=== PATIENT | female | born 2005 | race Two or more races ===

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

== ENCOUNTER 2024-03-08 19:57 | Emergency (ER) | payer MEDICAID ==
[~2024-03-08] VITALS: Ht 167.6 cm; Wt 109.0 kg
[~2024-03-08 19:57] MED LIST: ACET1CAP14 PO
[2024-03-08 20:20] VITALS: TEMP 98.9
[2024-03-08 20:36] VITALS: BP 117/58; PULSE 82; RESP 16; O2SAT 98
[2024-03-08] MEDS ORDERED: CLIN1CAP70 PO (21:10)
[2024-03-08] MEDS ORDERED: ACET500T58 PO (21:10)
[2024-03-08] MEDS: cefTRIAXone SOD 1,000 MG VL IM ONE (21:12)
[2024-03-08] MEDS: LIDOCAINE 1% HCL (LOCAL ANESTH.) INJ 20ML MDV ID ONE (21:13)
== END 2024-03-08 21:41 | disposition home or self-care (01) ==
LOC: ER 19:57
DX: S30.861A Insect bite (nonvenomous) of abdominal wall, initial encounter (principal); E11.9 Type 2 diabetes mellitus without complications; Z79.899 Other long term (current) drug therapy; Z98.890 Other specified postprocedural states; W57.XXXA Bitten or stung by nonvenomous insect and other nonvenomous arthropods, initial encounter; Y93.89 Activity, other specified; Y92.89 Other specified places as the place of occurrence of the external cause; Y99.8 Other external cause status
CPT/HCPCS: 96372; 99283; J0696; J2001

== ENCOUNTER 2024-08-20 11:45 | Emergency (ER) | payer MEDICAID ==
[~2024-08-20] VITALS: Ht 167.6 cm; Wt 109.5 kg
[~2024-08-20 11:45] MED LIST changes: +ACET500T58 PO; +CLIN1CAP70 PO
[2024-08-20] MEDS: ACETAMINOPHEN 500 MG TAB or CAP PO ONE (14:12)
--- NOTE | 2024-08-20 14:26 | ED.PDOC ---
SOB-HPI HPI Comments 19y F who presents to the ED for chief complaint of flu-like symptoms. Pt states she has been having cough, nasal congestion, headache, fever, and L ear clogged sensation for the past 4-5 days. Pt states she was with boyfriend during the time and states he recently tested positive for COVID. Pt otherwise in noted respiratory distress and is able to speak without getting short of breath. pt otherwise denies chest pain, shortness of breath, diaphoresis, palpations, nausea, vomiting or diarrhea. Pt otherwise has noted elevated heart rate of 108 with otherwise stable vitals with noted temp of 98.9F, 98% 02 sat on room air, and BP of 124/75. Pt has noted history of DM and states her blood sugar has been elevated at home. Pt otherwise denies any other symptoms at this time. 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[employer] Hx Family History Family History: Unknown Social History Smoker: Non-Smoker Alcohol: Denies ETOH Use Drugs: Denies Drug Use Lives In: Home Constitutional: reports: fatigue, fever; denies: chills, diaphoresis, malaise, sweats, weakness, others EENTM: reports: ear pain, nose congestion, throat pain; denies: blurred vision, double vision, ear bleeding, ear discharge, ear drainage, ear ringing, eye pain, eye redness, hearing loss, mouth pain, mouth swelling, nasal discharge, nose bleeding, nose pain, photophobia, tearing, throat swelling, voice changes, others Respiratory: reports: cough; denies: hemoptysis, orthopnea, SOB at rest, shortness of breath, SOB with excertion, stridor, wheezing, others Cardiovascular: denies: chest pain, dizzy spells, diaphoresis, Dyspnea on exertion, edema, irregular heart beat, left arm pain, lightheadedness, palpitations, PND, syncope, others Gastrointestinal: denies: abdomen distended, abdominal pain, blood streaked bowels, constipated, diarrhea, dysphagia, difficulty swallowing, hematemesis, melena, nausea, poor appetite, poor fluid intake, rectal bleeding, rectal pain, vomiting, others Genitourinary: denies: abnormal vagina bleeding, burning, dyspareunia, dysuria, flank pain, frequency, hematuria, incontinence, pain, , vagina discharge, urgency, others Neurological: denies: dizziness, fainting, headache, left sided numbness, left sided weakness, numbness, paresthesia, pre-existing deficit, right sided numbness, right sided weakness, seizure, speech problems, tingling, tremors, weakness, others Musculoskeletal: denies: back pain, gout, joint pain, joint swelling, muscle pain, muscle stiffness, neck pain, others Integumetry: denies: bruises, change in color, change in hair/nails, dryness, laceration, lesions, lumps, rash, wounds, others Allergic/Immunocompromised: denies: Difficulty Healing, Frequent Infections, Hives, Itching, others Hematologic/Lymphatic: denies: anemia, blood clots, easy bleeding, easy bruising, swollen glands, others Endocrine: denies: excessive hunger, excessive sweating, excessive thirst, excessive urination, flushing, intolerance to cold, intolerance to heat, unexplained weight gain, unexplained weight loss, others Psychiatric: denies: anxiety, bipolar disorder, depression, hopeless, panic disorder, schizophrenia, sleepless, suicidal, others All Other Systems: Reviewed and Negative Physical Exam General Appearance: No Apparent Distress, Obese HEENT: PERRL/EOMI Neck: Full Range of Motion, Normal Inspection Respiratory: Lungs Clear, No Accessory Muscle Use, No Respiratory Distress, Normal Breath Sounds Cardiovascular: No Edema, No JVD, Regular Rate/Rhythm Breast Exam: Deferred Gastrointestinal: Non Tender, Soft Genitalia: Deferred Pelvic: Deferred Rectal: Deferred Extremities: Normal inspection, Normal range of motion, No pedal edema Neurologic: Alert (Oriented x4), Normal Affect, Normal Mood, Other (Ambulatory. No gross focal deficit.) Cerebellar Function: NOT DONE Reflexes: NOT DONE Skin: Dry, Normal Color, Warm Lymphatic: NOT DONE Was a procedure done? Was a procedure done?: No Differential Dx Differential Diagnosis: Asthma, Bronchitis, COPD, Pneumonia, Pharyngitis, URI Comments infuenza A and B, COVID, X-Ray, Labs, Meds, VS Vital Signs Date Time Temp Pulse Resp B/P (MAP) Pulse Ox O2 Delivery O2 Flow Rate FiO2 3/8/25 14:48 98.2 08/20/24 14:12 98.9 08/20/24 14:00 102 16 97 Room Air 08/20/24 14:00 98.6 102 16 126/76 (93) 97 98.6 08/20/24 12:07 18 98 Room Air* 0 21 08/20/24 12:05 98.9 108 18 124/75 (91) 98 Lab Test 08/20/24 14:54 08/20/24 14:25 08/20/24 14:13 08/20/24 12:08 Range/Units Beta HCG, Quantitative 0.3 L 1.5-4.2 mIU/mL POC Glucose 186 H 150 H 70-106 mg/dl Influenza Type A Antigen Negative Negative Influenza Type B Antigen Negative Negative SARS-CoV-2 Antigen (Rapid) Positive *A NEGATIVE Group A Streptococcus Rapid Negative Current Medications Medications (Trade) Dose Ordered Sig/Nikhil Route Start Time Stop Time Status Last Admin Acetaminophen (Tylenol Tablet Or Capsule) 1,000 mg ONCE ONCE PO 08/20/24 14:15 08/20/24 14:16 DC 08/20/24 14:12 X-Ray, Labs, Meds, VS Comment 19-year-old female with a history of diabetes complaining of cough, nasal congestion, headache, fever, and L ear clogged sensation for the past 4-5 days Vitals remarkable for heart rate 108 Exam unremarkable Rhythm strip independently interpreted by me: Sinus tach, rate 102, no ectopy. HCG negative, Accu-Chek 150, influenza and strep negative, COVID positive Patient treated with the following in the ED: Tylenol 1 g p.o. On re-evaluation, patient resting comfortably with stable vitals. Patient appears stable for discharge with close follow-up with her primary physician. Rx paxlovid, tylenol, ibuprofen, mucinex Time of 1ST Reevaluation: 15:00 Reevaluation 1ST: Unchanged Patient Education/Counseling: Diagnosis, Treatment Family Education/Counseling: No Family Present Additional Information -Reviewed patient's previous visit(s): - The following tests were ordered, and results were reviewed by me: influenza A and B, covid test, rapid strep, beta hcg, accu check - Additional information was gathered from interviewing the following independent Historian: pt - I reviewed and agreed with the following test results read by other provider: none - I discussed treatments and results with medical personnel and: patient Comprehensive systems review obtained and negative except for what is stated in the HPI. Departure 1 Departure Time of Disposition: 16:34 Impression: Primary Impression: COVID Disposition: 01 HOME / SELF CARE / HOMELESS Condition: Stable Additional Instructions: Your test for influenza and strep were negative. You tested positive for COVID. I have prescribed medication for your symptoms, and the antiviral medication for COVID. Follow-up with your primary doctor in 1-2 days e-Prescriptions Acetaminophen (Tylenol Extra Strength) 500 Mg Tab 1000 MG PO Q6HP PRN, #30 TAB prn fever or pain Prov: ROSIE WASHINGTON MD 08/20/24 Ibuprofen Micronized (Ibuprofen) 800 Mg Tab 800 MG PO Q8HP PRN, #30 TAB prn fever or pain, take with food Prov: ROSIE WASHINGTON MD 08/20/24 Guaifenesin (Mucinex) 600 Mg Tab 1 TAB PO BID PRN, #20 TAB prn congestion Prov: ROSIE WASHINGTON MD 08/20/24 Nirmatrelvir/Ritonavir (PAXLOVID 20 x 150 MG & 10 x 100MG) 1 Tab Tab 1 DOSE PO BID for 5 Days, #1 PKG 300 mg nirmatrelvir and 100 mg ritonavir po bid x 5 days Prov: ROSIE WASHINGTON MD 08/20/24 Discharged With: Relative Critical Care Note Critical Care Time?: No Stability Stability form required: No Heart Score Heart Score: Heart Score Response (Comments) Value History N/A 0 EKG N/A 0 Age N/A 0 Risk Factors N/A 0 Troponin N/A 0 Total 0 I personally scribed for ROSIE WASHINGTON MD ([email or web address]) on 08/20/24 at 14:26. Electronically submitted by Brenda Dumont ([email or web address]). ROSIE WASHINGTON MD Aug 20, 2024 14:26
[2024-08-20 15:32] LABS: COVID19 ANTIGEN SOFIA FIA POSITIVE (NEGATIVE)
[2024-08-20 15:33] LABS: Rapid Influenza A Negative (Negative); Rapid Influenza B Negative (Negative)
[2024-08-20 15:34] LABS: Rapid Strep A Screen-Throat Negative
[2024-08-20] MEDS ORDERED: NIRM1TAB8 PO (16:42)
[2024-08-20] MEDS ORDERED: IBUP-1455 PO (16:42)
[2024-08-20] MEDS ORDERED: ACET-1304 PO (16:42)
[2024-08-20] MEDS ORDERED: GUAI600T78 PO (16:42)
[2024-08-20 16:47] VITALS: BP 122/78; PULSE 89; RESP 18; TEMP 98.9; O2SAT 98
== END 2024-08-20 16:53 | disposition home or self-care (01) ==
LOC: ER 11:45
DX: U07.1 COVID-19 (principal); E11.9 Type 2 diabetes mellitus without complications
CPT/HCPCS: 36415; 82947; 82962; 84702; 87070; 87426; 87804; 87880

== ENCOUNTER 2025-04-19 19:38 | Emergency (ER) | payer MEDICAID, OTHER ==
[~2025-04-19] VITALS: Ht 167.6 cm; Wt 115.3 kg
[~2025-04-19 19:38] MED LIST changes: +ACET-1304 PO; +GUAI600T78 PO; +IBUP-1455 PO; +NIRM1TAB8 PO
[2025-04-19 19:40] VITALS: BP 115/51; PULSE 97; RESP 18; TEMP 98.2; O2SAT 98
[2025-04-19] MEDS: methylPREDNISolone SOD SUCC 125 MG/2 ML VL IM ONE (20:48)
[2025-04-19] MEDS ORDERED: AMOX875T4 PO (20:49)
[2025-04-19] MEDS ORDERED: PRED20TA2 PO (20:49)
--- NOTE | 2025-04-19 20:50 | ED.PDOC ---
SOB-HPI HPI Comments 20-year-old female presents to ER with complaints of cough x 1.5 months. Patient reports that she has been experiencing dry cough and intermittent wheezing x 1.5 months. Denies any pain and denies use of medications for current symptoms. Patient presents to ER afebrile, ambulatory, with steady gait, in no distress and states she has also been experiencing "UTI symptoms" x2 weeks. 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 Pertinent ELECTRONIC EQUIPMENT SET UP OPERATOR History Family History Family History: Unknown Social History Smoker: Non-Smoker Alcohol: Denies ETOH Use Drugs: Denies Drug Use Lives In: Home Constitutional: denies: chills, diaphoresis, fatigue, fever, malaise, sweats, weakness, others EENTM: denies: blurred vision, double vision, ear bleeding, ear discharge, ear drainage, ear pain, ear ringing, eye pain, eye redness, hearing loss, mouth pain, mouth swelling, nasal discharge, nose bleeding, nose congestion, nose pain, photophobia, tearing, throat pain, throat swelling, voice changes, others Respiratory: reports: others (As stated in HPI) Cardiovascular: denies: chest pain, dizzy spells, diaphoresis, Dyspnea on exertion, edema, irregular heart beat, left arm pain, lightheadedness, palpitations, PND, syncope, others Gastrointestinal: denies: abdomen distended, abdominal pain, blood streaked bowels, constipated, diarrhea, dysphagia, difficulty swallowing, hematemesis, me beto, nausea, poor appetite, poor fluid intake, rectal bleeding, rectal pain, vomiting, others Genitourinary: reports: others (As stated in HPI) Neurological: denies: dizziness, fainting, headache, left sided numbness, left sided weakness, numbness, paresthesia, pre-existing deficit, right sided numbness, right sided weakness, seizure, speech problems, tingling, tremors, weakness, others Musculoskeletal: denies: back pain, gout, joint pain, joint swelling, muscle pain, muscle stiffness, neck pain, others Integumetry: denies: bruises, change in color, change in hair/nails, dryness, laceration, lesions, lumps, rash, wounds, others Allergic/Immunocompromised: denies: Difficulty Healing, Frequent Infections, Hives, Itching, others Hematologic/Lymphatic: denies: anemia, blood clots, easy bleeding, easy bruising, swollen glands, others Endocrine: denies: excessive hunger, excessive sweating, excessive thirst, excessive urination, flushing, intolerance to cold, intolerance to heat, unexplained weight gain, unexplained weight loss, others Psychiatric: denies: anxiety, bipolar disorder, depression, hopeless, panic disorder, schizophrenia, sleepless, suicidal, others Physical Exam General Appearance: No Apparent Distress, Obese HEENT: Normal ENT Inspection, PERRL/EOMI, Pharynx Normal, TMs Normal Neck: Full Range of Motion, Non-Tender, Normal Respiratory: Chest Non-Tender, Lungs Clear, No Accessory Muscle Use, No Respiratory Distress, Normal Breath Sounds Cardiovascular: No Murmur, No Gallop, Regular Rate/Rhythm Breast Exam: Deferred Gastrointestinal: NOT DONE Genitalia: Deferred Pelvic: Deferred Rectal: Deferred Extremities: Normal capillary refill, Normal range of motion Neurologic: Alert, No Motor Deficits, Normal Affect, Normal Mood, No Sensory Deficits Cerebellar Function: Normal Reflexes: Normal Skin: Dry, Normal Color, Warm Peripheral Pulses: 2+ Radial (R), 2+ Radial (L), 2+ Brachial (R), 2+ Brachial (L) Lymphatic: No Adenopathy Was a procedure done? Was a procedure done?: No Sedation Sedation?: No Differential Dx Differential Diagnosis: Pneumonia, Respiratory Distress, Pharyngitis, URI X-Ray, Labs, Meds, VS Vital Signs Date Time Temp Pulse Resp B/P (MAP) Pulse Ox O2 Delivery O2 Flow Rate FiO2 04/19/25 19:40 98.2 97 18 115/51 98 98.2 Current Medications Medications (Trade) Dose Ordered Sig/Nikhil Route Start Time Stop Time Status Last Admin Methylprednisolone Sodium Succinate (Solu Medrol) 125 mg ONCE ONCE IM 04/19/25 20:45 04/19/25 20:46 DC 04/19/25 20:48 PATIENT: BERNARDINO BOSTONANISA: [id number]: [id number] : 2005 LOC: ER ROOM / BED: / AGE / SEX: 20 / F ADM STATUS: REG ER SERVICE 37 ORDERING PHYSICIAN: SATYA RASHEED PROCEDURE(s): CXR2 - CHEST TWO VIEWS ROUTINE REASON: cough ORDER NUMBER(s): [id number], ACCESSION NUMBER(s): [id number] CHEST RADIOGRAPH Indication: cough Technique: Frontal and lateral view of the chest was obtained Comparison: None FINDINGS: Lines and Tubes: None Lungs: Clear Pleura: No effusion. No pneumothorax. Cardiomediastinal contours: Unremarkable Bones: Unremarkable IMPRESSION: No evidence of acute disease. ATED BY: NEMO CAZARES MD DICTATED DATE/TIME: 04/19/252118 SIGNED BY: NEMO CAZARES MD SIGNED DATE/TIME: 04/19/252118 CC: waiver signed Chest x-ray reviewed Solu-Medrol 125 mg IM ordered Urinalysis ordered Patient had improvement in symptoms, denied any shortness of breath/wheezing, well appearing and in no distress prior to discharge Advised to drink plenty of fluids Advised to follow up with PCP in 1-2 days Patient verbalized understanding and agreeable with current plan of care Advised to return to ER immediately if symptoms worsen Images Reviewed?: Images reviewed and evaluated by me Time of 1ST Reevaluation: 20:44 Reevaluation 1ST: N/A Patient Education/Counseling: Diagnosis, Treatment, Prognosis, Need For Follow Up Family Education/Counseling: No Family Present SEPSIS Sepsis Screen Date sepsis recognized/suspect: Apr 19, 2025 Time Sepsis recognized/suspect: 1943 Recent Procedure: No On Antibiotic Therapy: No Respiratory Rate >20: No Heart Rate >90: No Temp<36 C (96.8 F) or >38.3 C: No SBP <90 or MAP <65 mmHG: No New Acute Mental Status Change: No Is the patient on CPAP, BIPAP,: No Physician Orders Urinalysis (04/19/25 19:50) Chest Two Views Routine (04/19/25 20:38) Vital Signs Date Time Temp Pulse Resp B/P (MAP) Pulse Ox O2 Delivery O2 Flow Rate FiO2 04/19/25 19:40 98.2 97 18 115/51 98 98.2 Medications Medications Dose Ordered Sig/Nikhil Route Start Time Stop Time Status Last Admin Dose Admin Methylprednisolone Sodium Succinate 125 mg ONCE ONCE IM 04/19/25 20:45 04/19/25 20:46 DC 04/19/25 20:48 Departure 1 Departure Time of Disposition: 22:09 Impression: Primary Impression: Acute bronchitis Qualified Codes: J20.9 - Acute bronchitis, unspecified Disposition: HOME / SELF CARE / HOMELESS Condition: Stable e-Prescriptions Prednisone (Prednisone) 20 Mg Tab 20 MG PO BID for 5 Days, #10 TAB 0 Refills Prov: SATYA RASHEED 04/19/25 Amoxicillin & Pot Clavulanate (Amoxicillin/Potassium Cla) 875 Mg Tab 1 TAB PO BID for 10 Days, #20 TAB 0 Refills Prov: SATYA RASHEED 04/19/25 Discharged With: Self Critical Care Note Critical Care Time?: No Stability Stability form required: No Heart Score Heart Score: Heart Score Response (Comments) Value History N/A 0 EKG N/A 0 Age N/A 0 Risk Factors N/A 0 Troponin N/A 0 Total 0 SATYA RASHEED Apr 19, 2025 20:50
--- NOTE | 2025-04-19 21:22 | DVH ---
CHEST RADIOGRAPH Indication: cough Technique: Frontal and lateral view of the chest was obtained Comparison: None FINDINGS: Lines and Tubes: None Lungs: Clear Pleura: No effusion. No pneumothorax. Cardiomediastinal contours: Unremarkable Bones: Unremarkable IMPRESSION: No evidence of acute disease.
== END 2025-04-19 22:13 | disposition home or self-care (01) ==
LOC: ER 19:38 → MERGE 19:38 → ER 22:13
DX: J20.9 Acute bronchitis, unspecified (principal); E11.9 Type 2 diabetes mellitus without complications
CPT/HCPCS: 71046; 96372; 99283; J2919